=== PATIENT | male | born 1965 | race Hispanic/Latino ===

== ENCOUNTER 2017-08-15 10:52 | Inpatient (IN) | payer MEDICAID ==
[2017-08-15 11:04] VITALS: BMI 32.8
[2017-08-15 11:57] LABS: RBC URINE < 1 /hpf (0-3); URINE BILIRUBIN NEGATIVE (NEGATIVE); URINE BLOOD NEGATIVE (NEGATIVE); URINE COLOR Yellow (YELLOW); URINE GLUCOSE (UA) NORMAL (Normal); URINE KETONE NEGATIVE (NEGATIVE); URINE LEUKOCYTE ESTERASE NEG Leu/uL (Negative); URINE PROTEIN NEGATIVE (NEGATIVE); URINE UROBILINOGEN NORMAL mg/dL (0.2-1.0); WBC URINE < 1 /hpf (0-5)
[2017-08-15 11:58] LABS: BASO % 0.8 % (0.0-2.0); EOS # 0.2 K/uL (0.0-0.7); EOS % 4.1 % (0.0-4.0); HEMATOCRIT 40.7 % (35.0-51.0); LYMPH # 1.6 K/uL (1.0-4.3); LYMPH % 27.8 % (20.0-40.0); MEAN CELL VOLUME 82.7 fL (80.0-94.0); MEAN CORPUSCULAR HEMOGLOBIN 29.8 pg (27.0-31.0); MEAN CORPUSCULAR HGB CONC 36.1 g/dL (33.0-37.0); MEAN PLATELET VOLUME 6.7 fL (7.2-11.7); MONO # 0.4 K/uL (0.0-0.8); MONO % 7.6 % (0.0-10.0); RED CELL DISTRIBUTION WIDTH 14.2 % (11.5-14.5); WHITE BLOOD COUNT 5.8 K/uL (4.8-10.8)
--- NOTE | 2017-08-15 12:04 | C.PDOC ---
History Of Present Illness 51 y/o male with past medical history of HTN, DM, HLD and Anxiety brought to ED by EMS for suicidal ideation with plan and complaints of worsening blindness. Patient states he has an eye doctor in [place]. Patient is requesting crisis evaluation and denies Homicidal ideation, sob, chest pain or any other complauints at this time. Chief Complaint (Nursing): Psychiatric Evaluation History Per: Patient History/Exam Limitations: no limitations Onset/Duration Of Symptoms: Hrs Current Symptoms Are (Timing): Still Present Suicide/Self Injury Attempted (Context): None Associated Symptoms: Suicidal Thoughts, Suicidal Plan Past Medical History Reviewed: Historical Data, Nursing Documentation, Vital Signs Vital Signs: Last Vital Signs Temp 98.1 F 08/15/17 15:26 Pulse 71 08/15/17 15:26 Resp 17 08/15/17 16:52 BP 121/75 08/15/17 15:26 Pulse Ox 97 08/15/17 15:26 - Medical History PMH: Anxiety, Depression, HTN, Hypercholesterolemia, Chronic Kidney Disease Surgical History: No Surg Hx - [facility] Procedures INTRODUCE OTH THROMBOLYTIC IN PERIPH VEIN, PERC (07/16/17) Family History: States: No Known Family Hx - Social History Hx Alcohol Use: No Hx Substance Use: No - Immunization History Hx Tetanus Toxoid Vaccination: No Hx Influenza Vaccination: No Hx Pneumococcal Vaccination: No Review Of Systems Except As Marked, All Systems Reviewed And Found Negative. Constitutional: Negative for: Fever, Chills Cardiovascular: Negative for: Chest Pain Respiratory: Negative for: Shortness of Breath Gastrointestinal: Negative for: Nausea, Vomiting Skin: Negative for: Rash Psych: Positive for: Suicidal ideation Physical Exam - Physical Exam Appears: Non-toxic, No Acute Distress Skin: Normal Color, Warm, Dry, No Rash Head: Atraumatic, Normacephalic Eye(s): bilateral: Normal Inspection Oral Mucosa: Moist Neck: Normal ROM, Supple Chest: Symmetrical Cardiovascular: Rhythm Regular Respiratory: Normal Breath Sounds, No Rales, No Rhonchi, No Wheezing Extremity: Normal ROM, Capillary Refill (<2 seconds) Neurological/Psych: Oriented x3, Normal Speech, Normal Motor, Normal Sensation ED Course And Treatment - Laboratory Results Result Diagrams: 08/15/17 11:48 08/15/17 11:48 O2 Sat by Pulse Oximetry: 97 (RA) Pulse Ox Interpretation: Normal Progress Note: 1:1 patient care, Crisis eval reqested, Urine Collected for Drug Screening. patient was medically cleared and is stable to be admitted to psychiatric floor. accepted patient for admission. Disposition - Disposition Disposition: HOSPITALIZED Disposition Time: 14:47 Condition: STABLE - Clinical Impression Clinical Impression: Depression, Suicidal ideations - PA / CLERK TO JUSTICE / Resident Statement MD/DO has reviewed & agrees with the documentation as recorded. - Scribe Statement The provider has reviewed the documentation as recorded by the Noheliaibsheng Lyon All medical record entries made by the Noheliaibsheng were at my direction and personally dictated by me. I have reviewed the chart and agree that the record accurately reflects my personal performance of the history, physical exam, medical decision making, and the department course for this patient. I have also personally directed, reviewed, and agree with the discharge instructions and disposition. Decision To Admit - Pt Status Changed To: Hospital Disposition Of: Inpatient - Admit Certification Admit to Inpatient:: After my assessment, the patient will require hospitalization for at least two midnights. This is because of the severity of symptoms shown, intensity of services needed, and/or the medical risk in this patient being treated as an outpatient. - InPatient: Physician Admission Certification: I certify that this patient requires 2 or more midnights of care for the following reason:: pt will need more than 2 days of hospitalization - . Bed Request Type: Psychiatry Patient Diagnosis: Depression, Suicidal ideations
[2017-08-15 12:05] LABS: CHLORIDE 98 mmol/L (98-107); SODIUM 135 mmol/L (132-148)
[2017-08-15 12:07] LABS: ALB/GLOB RATIO 1.5 (1.0-2.1); ALKALINE PHOSPHATASE 75 U/L (38-126); AST/SGOT 25 U/L (17-59); BILIRUBIN,TOTAL 1.2 mg/dL (0.2-1.3); BLOOD UREA NITROGEN 12 mg/dL (9-20); CARBON DIOXIDE 25 mmol/L (22-30); GFR AFRICAN-AMERICAN > 60; TOTAL PROTEIN 7.2 g/dL (6.3-8.3)
[2017-08-15 12:08] LABS: ALCOHOL SERUM < 10 mg/dl (0-10); ALT/SGPT 42 U/L (21-72); CALCIUM 9.3 mg/dl (8.6-10.4); GLUCOSE,RANDOM 125 mg/dL (75-110)
--- NOTE | 2017-08-15 12:12 | RAD ---
HISTORY: Detox/Psy COMPARISON: Chest x-ray performed 07/15/17 TECHNIQUE: Chest, one view. FINDINGS: Examination limited by habitus. LUNGS: No focal consolidation. Please note that chest x-ray has limited sensitivity for the detection of pulmonary masses. PLEURA: No significant pleural effusion identified. No definite pneumothorax . CARDIOVASCULAR: Heart size appears within normal limits. OSSEOUS STRUCTURES: No acute osseous abnormality identified. VISUALIZED UPPER ABDOMEN: Unremarkable. OTHER FINDINGS: None. IMPRESSION: No focal consolidation, significant pleural effusion, or definite pneumothorax identified.
--- NOTE | 2017-08-15 16:28 | PCM.BM ---
<Taylor Johnson - Last Filed: 08/15/17 16:19> Treatment Plan Problems - Problems identified on initial assessmt Depression Date Initiated: 08/15/17 Time Initiated: 16:19 Assessment reference: NA Status: Active Suicidal, Ideation Date Initiated: 08/15/17 Time Initiated: 16:19 Assessment reference: NA Status: Active Treatment assets and liabiliti Patient Assests: cooperative, ADL independent (Minimal assist, Blind), negotiates basic needs Patient Liabilities: live alone (Homeless), financial problems, poor support system, substance abuse (+ Benzo), medical problems (HTN, DM, Tourette, Renal Disease), visual impairment (right eye blindness, left eye c/o shallow can see a little) - Milieu Protocol Maintain good personal hygiene: daily Encourage regular showers, daily Remind patient to perform daily oral care, other Assist patient to perform ADL's (self with minimal assist) Conduct patient checks and document Observation sheet: Q15 minutes (Safety) Maintain personal safety: every shift Educate patient to report safety concerns to staff, every shift Monitor environment for contraband/sharps Medication safety: Monitor for expected outcome, potential side effects: every shift, Assess barriers to learning: every shift, Assess readiness for medication education: every shift <Min Borrego - Last Filed: 08/18/17 12:40> - Diagnosis (1) Depression Status: Acute Interventions: 08/18/17 12:41 * Assess/adjust medications daily and /or as needed * See patient on an individual basis 7x/week to assess symptoms of depression * Monitor for side effects & effectiveness of medications * (2) Tourette syndrome Status: Acute Interventions: 08/18/17 12:41 * Assess/adjust medications daily and /or as needed * See patient on an individual basis 7x/week to assess symptoms of anxiety * Educate patient regarding benefits, side effects and risks of prescribed medications * <Lucretia Christopher - Last Filed: 08/20/17 10:02> Family Contact Family involvement: Family/SO is involved Family contact: Patient declines to allow family contact at present - Goals for Treatment Patient goals for treatment: "I want to leave to [place]." Discharge/Continuing Care - Education Needs Education Needs: Patient Medication, Patient Coping Skills - Discharge Discharge Criteria: Tolerates medication w/o severe side effects, Reduction of target symptoms Discharge to:: Home - Treatment Team Participation Discussed with Family/SO: No Was Patient/Family/SO present at Treatment Team Meeting: No
--- NOTE | 2017-08-16 11:44 | PCM.PSYCH ---
Initial Psychiatric Evaluation - Initial Psychiatric Evaluation Type of Admission: Voluntary Legal Status: Capacity Chief Complaint (in patient's own words): "I was suicidal" History of Present Illness and Precipitating Events: The patient is seen, chart reviewed and case discussed. This is a 51-year-old male, for the last 2 years, has 3 daughters from ages 18 to 27. The patient is on social security for his blindness, currently homeless for the last year but he says he is getting an apartment soon (however, as per chart, [facility] SW [facility] referred him to [facility] for help. Also, he gets $1400 from and can rent a place) He was brought in by EMS after [place] police found him sleeping in a park. He reports that he has been depressed for the last few weeks due to his homelessness and his family shopping him out. He claims that they have a order of protection and he can't even talk to them. However, he denies domestic violence or any other threats and claims that it was due to his "really bad" drug use. He admits to having used crack cocaine for 20 years and stopped little more than a year ago. He denies other drugs but smokes 1 pack per day cigarette and has a doctor who was giving him low dose Xanax until recently. He reports anhedonia, vague suicidal thoughts but not currently on the unit, low self-esteem, poor sleep and appetite and other dep. symptoms. However, he denies manic or psychotic symptoms. He also reports panic attacks. Past psych history: He was diagnosed with depression, Tourette's and was taking Pimozide, but he agrees to take haloperidol here. Support Specialist recommended Abilify or Risperdal but he wanted to think about it. He is on Lexapro currently. 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 Current Medications: Active Medications Generic Name Dose Route Start Last Admin Trade Name Freq PRN Reason Stop Dose Admin Aspirin 81 mg 08/16/17 10:00 08/16/17 10:08 Ecotrin PO 81 mg DAILY PARISH Administration Benztropine Mesylate 1 mg 08/15/17 18:00 08/16/17 10:09 Cogentin PO 1 mg BID PARISH Administration Clonazepam 0.5 mg 08/16/17 10:00 08/16/17 10:08 Klonopin PO 0.5 mg BID PARISH Administration Escitalopram Oxalate 20 mg 08/16/17 10:00 08/16/17 10:08 Lexapro PO 20 mg DAILY PARISH Administration Gabapentin 300 mg 08/15/17 17:03 08/16/17 10:08 Neurontin PO 300 mg BID PRN Administration Anxiety Haloperidol 5 mg 08/15/17 18:00 08/16/17 10:08 Haldol PO 5 mg BID PARISH Administration Hydroxyzine HCl 50 mg 08/15/17 18:38 08/15/17 21:15 Atarax PO 50 mg Q6H PRN Administration Anxiety Lisinopril 20 mg 08/16/17 10:00 08/16/17 10:08 Zestril PO 20 mg DAILY PARISH Administration Metformin HCl 500 mg 08/15/17 18:00 08/16/17 10:08 Glucophage PO 500 mg BID PARISH Administration Nicotine 1 patch 08/16/17 10:00 08/16/17 10:08 Nicoderm Cq TD 1 patch DAILY PARISH Administration Pneumococcal Polyvalent Vaccine 0.5 ml 08/18/17 10:00 Pneumovax 23 Vaccine IM 08/18/17 10:01 .ONCE ONE Quetiapine Fumarate 50 mg 08/15/17 17:03 08/15/17 21:15 Seroquel PO 50 mg HS PRN Administration Insomnia Past Psychiatric History - Past Psychiatric History Previous Treatment History: Inpatient Pertinent Medical Hx (Current Medical&Sleep Prob, Allergies): Allergies Allergy/AdvReac Type Severity Reaction Status Date / Time Penicillins Allergy RASH Verified 08/14/17 16:36 Lisinopril [Prinivil] 20 mg PO DAILY #30 07/19/17 Alprazolam [Xanax] 0.5 mg PO BID 08/14/17 Aspirin [Ecotrin] 81 mg PO DAILY 08/14/17 Atorvastatin [Lipitor] 80 mg PO HS 08/14/17 Escitalopram [Lexapro] 20 mg PO DAILY 08/14/17 Gabapentin [Neurontin] 300 mg PO BID PRN 08/14/17 Nicotine 21 mg/24 hr [Nicoderm Cq] 1 patch TD DAILY 08/14/17 Pimozide [Orap] 2 mg PO TID 08/14/17 QUEtiapine [SEROquel] 50 mg PO HS PRN 08/14/17 metFORMIN [glucOPHAGE] 500 mg PO BID 08/14/17 Review of Systems - Neurological Neurological: UNREMARKABLE - Psychiatric Psychiatric: Abnormal Sleep Pattern, Anxiety, Behavioral Changes, Change in Appetite, Depression, Difficulty Concentrating, Hopelessness, Irritability, Mood Swings. absent: Hallucinations, Paranoia, Suicidal Ideation Mental Status Examination - Personal Presentation Personal Presentation: Looks older than stated age - Affect Affect: Constricted - Motor Activity Motor Activity: Calm - Reliability in Providing Information Reliability in Providing Information: Good - Speech Speech: Organized - Mood Mood: Depressed, Anxious - Formal Thought Process Formal Thought Process: No Impairment - Cognitive Functions Orientation: Person, Place, Situation, Time Sensorium: Alert Estimate of Intelligence: Average Judgement: Intact, as evidence by: Insight regarding need for hospitalization Memory: Recent intact, as evidence by: Ability to recall events of the day, Remote intact, as evidenced by: Abilit to recall sig. life events - Risk Risk: Diminished functioning - Strength & Assets Inventory Strength & Assets Inventory: Cooperative - Limitations Limitations: Living alone, Other DSM 5 DX - DSM 5 DSM 5 Diagnosis: Major depressive d/o -recurrent, severe, without psychosis Tourette's Cocaine use d/o - severe, in sustained remission Panic disorder Tobacco use d/o - severe - Recommended/Plan of Treatment Treatment Recommendations and Plan of Treatment: Start (enter name of medication and dose) Attend groups and activities Individual therapy Psychoeducation and support Encourage compliance with meds and after care Refer to outpatient program Teach healthy lifestyle methods, i.e. diet, exercise, meditation Smoking cessation 32 min Projected ELOS: 7 days Prognosis: good with treatment Discharge Plan and Discharge Criteria: No dep sxs Refer to outpt care - Smoking Cessation Smoking Cessation Initiated: Yes
--- NOTE | 2017-08-17 12:59 | PCM.PYCHPN ---
Psychiatric Progress Note - Psychiatric Progress Note Patient seen today, length of contact: 16 min Patient Chief Complaint: "I am depressed" Problems Identified/Issues Discussed: The pt is seen, chart reviewed, case discussed with staff. The pt is compliant with medications and reports no side-effects. Symptoms are improving slowly but needs more time to stabilize. Still c/o depressive sxs and anxiety And then he complained of more tourette's sx and clonidine prn started After care discussed, support and psychoeducation given. Medication Change: Yes (increase doses, add clonidine) Medical Record Reviewed: Yes Mental Status Examination - Cognitive Function Orientation: Person, Place, Situation, Time Memory: Impaired Attention: Poor Concentration: Poor Association: Loose Fund of Knowledge: Poor - Mood Mood: Depressed, Anxious - Affect Affect: Constricted - Speech Speech: Appropriate - Formal Thought Process Formal Thought Process: No Impairment - Suicidal Ideation Suicidal Ideation: No - Homicidal Ideation Homicidal Ideation: No Goal/Treatment Plan - Goal/Treatment Plan Need for Continued Stay: Discharge may exacerbated symptoms, Severe functional impairment Progress Toward Problem(s) and Goals/Treatment Plan: Start clonidine for tourettes Continue haldol for tourette's Cont. seroquel for insomnia Cont. linette for depression, gabapentin for anxiety Attend groups and activities Individual therapy Psychoeducation and support Encourage compliance with meds and after care Refer to outpatient program Teach healthy lifestyle methods, i.e. diet, exercise, meditation Smoking cessation Estimated Date of D/C: 08/22/17
[2017-08-17 18:20] VITALS: RESP 18; O2SAT 98
[2017-08-18] MEDS ORDERED: Pneumococcal 23-Valent Vaccine IM ONE (10:00)
[2017-08-18] MEDS ORDERED: Influenza Vaccine 60 mcg/0.5 mL SYR (4YR UP) IM ONE (10:00)
--- NOTE | 2017-08-18 11:33 | PCM.PYCHPN ---
Psychiatric Progress Note - Psychiatric Progress Note Patient seen today, length of contact: 16 min Patient Chief Complaint: "I need a new medication for Tourette's" Problems Identified/Issues Discussed: The pt is seen, chart reviewed, case discussed with staff. The pt is compliant with medications and reports no side-effects. He has more tics today (motor) and he feels haldol is not working Risperdal is started Still on clonidine but couldn't take it bc of low BP sometimes Still c/o depressive sxs and anxiety but not suicidal After care discussed, support and psychoeducation given. Medication Change: Yes (add risperdal and d/c haldol) Medical Record Reviewed: Yes Mental Status Examination - Cognitive Function Orientation: Person, Place, Situation, Time Memory: Impaired Attention: Poor Concentration: Poor Association: Loose Fund of Knowledge: Poor - Mood Mood: Depressed, Anxious - Affect Affect: Constricted - Speech Speech: Appropriate - Formal Thought Process Formal Thought Process: No Impairment - Suicidal Ideation Suicidal Ideation: No - Homicidal Ideation Homicidal Ideation: No Goal/Treatment Plan - Goal/Treatment Plan Need for Continued Stay: Discharge may exacerbated symptoms, Severe functional impairment Progress Toward Problem(s) and Goals/Treatment Plan: Start clonidine for tourettes Continue haldol for tourette's Cont. seroquel for insomnia Cont. linette for depression, gabapentin for anxiety Attend groups and activities Individual therapy Psychoeducation and support Encourage compliance with meds and after care Refer to outpatient program Teach healthy lifestyle methods, i.e. diet, exercise, meditation Smoking cessation Estimated Date of D/C: 08/22/17
--- NOTE | 2017-08-19 12:30 | PCM.PYCHPN ---
Psychiatric Progress Note - Psychiatric Progress Note Patient seen today, length of contact: 16 min Patient Chief Complaint: "I need to leave tomorrow, going to [place] with my sounding device operator friend" Problems Identified/Issues Discussed: The pt is seen, chart reviewed, case discussed with staff. The pt is compliant with medications and reports no side-effects. Risperdal is somewhat effective and he still takes clonidine sometimes. He says he will use pimozide when he leaves tomorrow EKG ordered Not zulma or homi. Somewhat odd but overall improving Fixated on TS treatment rather than his depression Medication Change: Yes Medical Record Reviewed: Yes Mental Status Examination - Cognitive Function Orientation: Person, Place, Situation, Time Memory: Impaired Attention: Poor Concentration: Poor Association: Loose Fund of Knowledge: Poor - Mood Mood: Depressed, Anxious - Affect Affect: Constricted - Speech Speech: Appropriate - Formal Thought Process Formal Thought Process: No Impairment - Suicidal Ideation Suicidal Ideation: No - Homicidal Ideation Homicidal Ideation: No Goal/Treatment Plan - Goal/Treatment Plan Need for Continued Stay: Discharge may exacerbated symptoms, Severe functional impairment Progress Toward Problem(s) and Goals/Treatment Plan: clonidine for tourettes Risperdal for TS also Cont. seroquel for insomnia Cont. linette for depression, gabapentin for anxiety Attend groups and activities Individual therapy Psychoeducation and support Encourage compliance with meds and after care Refer to outpatient program Teach healthy lifestyle methods, i.e. diet, exercise, meditation Smoking cessation Estimated Date of D/C: 08/20/17 If changed, why: per his request
[2017-08-20 07:33] VITALS: BP 106/74; PULSE 67; TEMP 97.8
--- NOTE | 2017-08-20 09:31 | PCM.PYCHDC ---
Mental Status Examination - Mental Status Examination Orientation: Person, Place, Situation, Time Memory: Impaired Mood: Anxious Affect: Constricted Speech: Appropriate Attention: Poor Concentration: Poor Association: WNL Fund of Knowledge: Poor Formal Thought Process: No Impairment Suicidal Ideation: No Current Homicidal Ideation?: No Discharge Summary - Discharge Note Reason for Hospitalization: Found in a park by the police, wandering, intoxicated and he voiced SI Laboratory Data: Abnormal Lab Results 08/20/17 08:34 POC Glucose (mg/dL) 125 H Consultations:: List each consultation separately and include: 1. Reason for request. 2. Findings. 3. Follow-up Summary of Hospital Course include:: 1. Description of specific treatment plan utilized for patients during their course of treatmen. 2. Summarize the time- course for resolution of acute symptoms and/or regressed behaviors. 3. Describe issues identified and worked on during hospitalization. 4. Describe medication utilized. 5. Describe medical problems identified and treated. 6. Reassessment of suicide risk Summary of Hospital Course: The patient is seen, chart reviewed and case discussed. This is a 51-year-old male, for the last 2 years, has 3 daughters from ages 18 to 27. The patient is on social security for his blindness, currently homeless for the last year but he says he is getting an apartment soon (however, as per chart, care home SW only referred him to [facility] for help. Also, he gets $1400 from and can rent a place) He was brought in by EMS after [place] police found him sleeping in a park. He reports that he has been depressed for the last few weeks due to his homelessness and his family shopping him out. He claims that they have a order of protection and he can't even talk to them. However, he denies domestic violence or any other threats and claims that it was due to his "really bad" drug use. He admits to having used crack cocaine for 20 years and stopped little more than a year ago. He denies other drugs but smokes 1 pack per day cigarette and has a doctor who was giving him low dose Xanax until recently. He reports anhedonia, vague suicidal thoughts but not currently on the unit, low self-esteem, poor sleep and appetite and other dep. symptoms. However, he denies manic or psychotic symptoms. He also reports panic attacks. Past psych history: He was diagnosed with depression, Tourette's and was taking Pimozide, but he agrees to take haloperidol here. Brake Operator Helper recommended Abilify or Risperdal but he wanted to think about it. He is on Lexapro currently. 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 Hospital course: The pt was admitted and started on treatment with psychotherapy, support, psychoeducation and medications. MA and CBT used. The pt attended groups and activities, as well as milieu therapy. All the risks and benefits of medications are discussed and the patient understood and agreed. The pt improved with the treatments provided. Howevere, he left few days early. Haldol did not help his tics and risperdal/clonidine partly. He was fixated on pimozide which we didn;t have and he didn't bring with him. After care discussed with the patient. He agreed to come to our clinic but then he reportedly spoke to his wet plant operator who was moving to [place] with a friend and he decided to tag along. - Final Diagnosis (DSM 5) Condition upon Discharge: STABLE DSM 5: Major depressive d/o -recurrent, severe, without psychosis Tourette's Cocaine use d/o - severe, in sustained remission Panic disorder Tobacco use d/o - severe Disposition: HOME/ ROUTINE Follow-up Treatment Plan: Continue below medications after discharge. Plus Pimozide 2 mg one tablet BID - which was non-formulary but per his request prescribed (risks, incl. TD, QT prolongation, NMS etc discussed) Follow after care plan as discussed. Use relapse prevention skills Return to ER or call 911 if suicidal, homicidal or symptoms relapse. Stay away from stress, alcohol and drugs. See primary doctor regularly and get labs. Prescriptions/Medication Reconciliation: Aspirin [Ecotrin] 81 mg PO DAILY #30 tabec Benztropine [Cogentin] 1 mg PO BID #60 tab cloNIDine [Catapres] 0.1 mg PO Q6H PRN #30 tab PRN Reason: Motor or vocal tics, max 3x/24 Escitalopram [Lexapro] 20 mg PO DAILY #30 tab Gabapentin [Neurontin] 300 mg PO TID #90 cap Lisinopril [Zestril] 20 mg PO DAILY #30 tab metFORMIN [glucOPHAGE] 500 mg PO BID #60 tab QUEtiapine [SEROquel] 100 mg PO HS #30 tab - Smoking Cessation Smoking Cessation Medication prescribed: No - Antipsychotic Medications Pt discharged on 2 or more routine antipsychotic medications: No
--- NOTE | 2017-08-20 15:31 | CARD ---
APPROVED REPORT EKG Measurement Heart [id number] <Conclusion> Sinus bradycardia Otherwise normal ECG
== END 2017-08-20 09:55 | disposition home or self-care (01) | DRG 426 ==
LOC: C.ER 10:52 → C.9E 14:46 → C.5E 15:12
DX: F32.9 Major depressive disorder, single episode, unspecified (principal); E11.22 Type 2 diabetes mellitus with diabetic chronic kidney disease; R45.851 Suicidal ideations; F14.90 Cocaine use, unspecified, uncomplicated; F95.2 Tourette's disorder; I12.9 Hypertensive chronic kidney disease with stage 1 through stage 4 chronic kidney disease, or unspecified chronic kidney disease; F41.0 Panic disorder [episodic paroxysmal anxiety]; Z72.0 Tobacco use; H54.8 Legal blindness, as defined in USA; Z59.0 Homelessness